=== PATIENT | female | born 1960 | race Caucasian/White ===

== ENCOUNTER 2024-12-14 09:56 | Emergency (ER) | payer MEDICARE ==
[2024-12-14 11:51] LABS: #Basophils 0.05 10x3/uL (0.0-0.2); #Eosinophils 0.14 10x3/uL (0.0-0.5); #Monocytes 0.82 10x3/uL (0.0-1.1); #Neutrophils 5.10 10x3/uL (1.5-8.4); %Basophils 0.7 % (0.0-2.0); %Eosinophils 1.8 % (0.0-6.0); %Lymphocytes 19.8 % (18.0-47.0); %Monocytes 10.7 % (0.0-10.0); %Neutrophils 66.7 % (40.0-75.0); Hematocrit 36.0 % (34.9-44.5); Hemoglobin 12.0 g/dL (12.0-15.5); Mean Corpuscular Hemoglobin 30.5 pg (27.0-33.0); Mean Corpuscular Volume 91.4 fL (81.6-98.3); Platelet Count 203 10x3/uL (150-450); Red Blood Cell (RBC) Count 3.94 10x6/uL (3.90-5.03); White Blood Cell (WBC) Count 7.64 10x3/uL (3.5-10.5)
[2024-12-14] MEDS ORDERED: Ketorolac Tromethamine 30 MG (1 mL) VIAL ONE (11:58)
[2024-12-14] MEDS ORDERED: Methocarbamol 500 MG TAB ONE (11:58)
[2024-12-14 12:03] LABS: ALT (SGPT) 13 U/L (Less than 34); AST (SGOT) 21 U/L (11-34); Albumin 3.9 g/dL (3.1-4.5); Alkaline Phosphatase 86 U/L (40-110); Anion Gap 14 mmol/L (10-20); BUN (Urea Nitrogen) 7 mg/dL (9.8-20.1); Bilirubin, Total 0.6 mg/dL (0.3-1.2); Calc. Creatinine Clearance 0 mL/min (70-130); Calcium 8.7 mg/dL (7.8-10.44); Carbon Dioxide 30 mmol/L (23-31); Chloride 96 mmol/L (98-107); Globulin 3.1 g/dL (2.4-3.5); Glucose 182 mg/dL (80-115); Potassium 3.4 mmol/L (3.5-5.1); Sodium 137 mmol/L (136-145)
== END 2024-12-14 13:10 | disposition home or self-care (01) ==
LOC: CSHERS 09:56
DX: M54.50 Low back pain, unspecified (principal); M25.552 Pain in left hip; E11.9 Type 2 diabetes mellitus without complications; F17.210 Nicotine dependence, cigarettes, uncomplicated
CPT/HCPCS: 72100; 73502; 80053; 85025; J1885; 36415; 96372; 99283

== ENCOUNTER 2025-02-20 16:08 | Emergency (ER) | payer MEDICARE, OTHER ==
[2025-02-20] MEDS ORDERED: Furosemide 40 MG (4 mL) VIAL ONE (16:40)
[2025-02-20 16:59] LABS: #Basophils 0.05 10x3/uL (0.0-0.2); #Eosinophils 0.10 10x3/uL (0.0-0.5); #Monocytes 0.44 10x3/uL (0.0-1.1); #Neutrophils 3.63 10x3/uL (1.5-8.4); %Basophils 0.8 % (0.0-2.0); %Eosinophils 1.7 % (0.0-6.0); %Lymphocytes 29.2 % (18.0-47.0); %Monocytes 7.3 % (0.0-10.0); %Neutrophils 60.5 % (40.0-75.0); Glucose, Urine (Dipstick) Normal (Negative); Hematocrit 38.2 % (34.9-44.5); Hemoglobin 12.9 g/dL (12.0-15.5); Leukocyte Negative (Negative); Mean Corpuscular Hemoglobin 30.6 pg (27.0-33.0); Mean Corpuscular Volume 90.5 fL (81.6-98.3); Platelet Count 239 10x3/uL (150-450); Protein, Urine (Dipstick) Negative (Neg-Trace); Red Blood Cell (RBC) Count 4.22 10x6/uL (3.90-5.03); Specific Gravity, Urine 1.010 (1.005-1.030); White Blood Cell (WBC) Count 6.00 10x3/uL (3.5-10.5)
[2025-02-20 17:14] LABS: ALT (SGPT) 12 U/L (Less than 34); AST (SGOT) 18 U/L (11-34); Albumin 4.1 g/dL (3.1-4.5); Alkaline Phosphatase 130 U/L (40-110); Anion Gap 10 mmol/L (10-20); BUN (Urea Nitrogen) 8 mg/dL (9.8-20.1); Bilirubin, Total 0.6 mg/dL (0.3-1.2); Calc. Creatinine Clearance 0 mL/min (70-130); Calcium 9.1 mg/dL (7.8-10.44); Carbon Dioxide 28 mmol/L (23-31); Chloride 103 mmol/L (98-107); Globulin 2.8 g/dL (2.4-3.5); Glucose 138 mg/dL (80-115); Lipase 20 U/L (8-78); Potassium 4.0 mmol/L (3.5-5.1); Sodium 137 mmol/L (136-145)
[2025-02-20 17:17] LABS: Troponin I Less than 0.010 ng/mL (< 0.028)
[2025-02-20 17:39] LABS: Bacteria/HPF Rare-Few HPF (None Seen); CAUTI Indications for Culture Pelvic or flank pain; RBC/HPF None Seen HPF (0-3); Urine Culture Reflex No No; WBC/HPF None Seen HPF (0-3)
== END 2025-02-20 18:49 | disposition home or self-care (01) ==
LOC: CSHERS 16:08
DX: L03.115 Cellulitis of right lower limb (principal); I87.8 Other specified disorders of veins; E11.40 Type 2 diabetes mellitus with diabetic neuropathy, unspecified; F17.210 Nicotine dependence, cigarettes, uncomplicated
CPT/HCPCS: 70450; 70486; 71045; 72125; 80053; 81001; 83690; 83880; 84484; 85025; 93971; J1940; 96374

== ENCOUNTER 2025-03-13 10:16 | Emergency (ER) | payer MEDICARE ==
[2025-03-13 13:16] LABS: #Basophils 0.06 10x3/uL (0.0-0.2); #Eosinophils 0.18 10x3/uL (0.0-0.5); #Monocytes 0.71 10x3/uL (0.0-1.1); #Neutrophils 5.32 10x3/uL (1.5-8.4); %Basophils 0.8 % (0.0-2.0); %Eosinophils 2.3 % (0.0-6.0); %Lymphocytes 20.2 % (18.0-47.0); %Monocytes 9.0 % (0.0-10.0); %Neutrophils 67.3 % (40.0-75.0); Hematocrit 37.0 % (34.9-44.5); Hemoglobin 12.1 g/dL (12.0-15.5); Mean Corpuscular Hemoglobin 30.5 pg (27.0-33.0); Mean Corpuscular Volume 93.2 fL (81.6-98.3); Platelet Count 226 10x3/uL (150-450); Red Blood Cell (RBC) Count 3.97 10x6/uL (3.90-5.03); White Blood Cell (WBC) Count 7.89 10x3/uL (3.5-10.5)
[2025-03-13 13:33] LABS: ALT (SGPT) 24 U/L (Less than 34); AST (SGOT) 25 U/L (11-34); Albumin 3.8 g/dL (3.1-4.5); Alkaline Phosphatase 122 U/L (40-110); Anion Gap 14 mmol/L (10-20); BUN (Urea Nitrogen) 6 mg/dL (9.8-20.1); Bilirubin, Total 0.7 mg/dL (0.3-1.2); Calc. Creatinine Clearance 0 mL/min (70-130); Calcium 8.6 mg/dL (7.8-10.44); Carbon Dioxide 28 mmol/L (23-31); Chloride 101 mmol/L (98-107); Globulin 2.7 g/dL (2.4-3.5); Glucose 172 mg/dL (80-115); Potassium 4.3 mmol/L (3.5-5.1); Sodium 139 mmol/L (136-145)
[2025-03-13 13:35] LABS: Troponin I Less than 0.010 ng/mL (< 0.028)
== END 2025-03-13 14:44 | disposition home or self-care (01) ==
LOC: CSHERS 10:16
DX: L03.116 Cellulitis of left lower limb (principal); I87.2 Venous insufficiency (chronic) (peripheral); E11.40 Type 2 diabetes mellitus with diabetic neuropathy, unspecified; F17.210 Nicotine dependence, cigarettes, uncomplicated
CPT/HCPCS: 36415; 71045; 80053; 83880; 84484; 85025; 93005